=== PATIENT | female | born 1970 | race American Indian/Alaskan Native ===

== ENCOUNTER 2017-01-26 12:41 | Emergency (ER) | payer SELFPAY ==
--- NOTE | 2017-01-26 12:56 | Emergency Department Report ---
Stated Complaint: HIGH BP Time Seen by Provider: 01/26/17 12:51 - HPI History of Present Illness: Patient is a 46 y/o female who presents due to headache and dizziness x 1 week. Patient denies any blurred vision, she admits of having hand tingling and swelling. Patient also admits of having SOB while at rest but denies any chest pain. Patient denies any medical problems. - ROS Review of Systems: + headaches and dizziness. + sob - Exam Physical Exam: alert and oriented x 3, no neurological focal deficits. no weakness, negative fast. no facilat droop, no arm weakness, negative romberg MSE screening note: Focused history and physical exam performed. Due to findings the following was ordered:CBC, CMP, TROPONIN, EKG, CHEST X-RAY, URINALYSIS, CT. ED Disposition for MSE Condition: Stable
[2017-01-26 13:31] LABS: Basophils % (Auto) 0.7 % (0.0-1.8); Eosinophils % (Auto) 1.9 % (0.0-4.3); Hematocrit 43.7 % (30.3-42.9); Hemoglobin 14.4 gm/dl (10.1-14.3); Mean Corpuscular HGB Conc 33 % (30-34); Mean Corpuscular Hemoglobin 30 pg (28-32); Mean Corpuscular Volume 92 fl (79-97); Platelet Count 209 K/mm3 (140-440); Red Blood Count 4.74 M/mm3 (3.65-5.03); White Blood Count 4.9 K/mm3 (4.5-11.0)
[2017-01-26 13:42] LABS: Alanine Aminotransferase 22 units/L (7-56); Albumin 4.1 g/dL (3.9-5); Albumin/Globulin Ratio 1.1 %; Alkaline Phosphatase 72 units/L (35-129); Anion Gap 20 mmol/L; BUN/Creatinine Ratio 19; Blood Urea Nitrogen 13 mg/dL (7-17); Carbon Dioxide 24 mmol/L (22-30); Chloride 103.8 mmol/L (98-107); Glucose 85 mg/dL (65-100); Potassium 4.6 mmol/L (3.6-5.0); Sodium 143 mmol/L (137-145); Total Protein 7.7 g/dL (6.3-8.2)
--- NOTE | 2017-01-26 13:46 | Cat Scan Report ---
CT HEAD WITHOUT CONTRAST INDICATION: Headache. COMPARISON: None similar at this institution. FINDINGS: Noncontrast head CT demonstrates normal, symmetric ventricles and sulci without acute or recent infarct, hemorrhage, mass effect or midline shift. Benign bilateral basal ganglia calcifications. No abnormal extra-axial fluid collections. Posterior fossa structures and basilar cisterns appear within normal limits. Symmetric eye globes. Mild right mid ethmoid air cell opacification. Aplastic right frontal sinus. Clear remainder aerated paranasal sinuses and mastoid air cells. Intact calvarium. Normal overlying scalp soft tissues. Oral piercing and missing teeth incidentally noted. CONCLUSION: No acute intracranial CT abnormality, as described. Thank you for the opportunity to participate in this patient's care.
[2017-01-26 14:54] VITALS: BP 155/90
--- NOTE | 2017-01-26 15:11 | Emergency Department Report ---
ED General Adult HPI - General Chief complaint: High BP Stated complaint: HIGH BP Source: patient Mode of arrival: Ambulatory Limitations: No Limitations - History of Present Illness Initial comments: Patient complains of a mild headache which is bilateral in the occipital area. It was intermittent. She mentioned shortness of breath at triage but denied this to me. She has some vague dizziness earlier but now is asymptomatic. She states that she has been able to walk, she has had no headache no dizziness no weakness or numbness. She is essentially asymptomatic at this time. She had fairly extensive medical screening prior to my encounter. These tests were negative. -: days(s) Location: head Radiation: non-radiation Severity scale (0 -10): 0 Quality: aching Consistency: intermittent, now resolved Improves with: none Worsens with: none Associated Symptoms: denies other symptoms (except as above indicated) - Related Data Previous Rx's Medication Instructions Recorded Last Taken Type Amlodipine Besylate [Norvasc] 2.5 mg PO QDAY #30 tablet 01/26/17 Unknown Rx Allergies Allergy/AdvReac Type Severity Reaction Status Date / Time erythromycin base AdvReac Vomiting Verified 01/26/17 12:54 ED Review of Systems ROS: Stated complaint: HIGH BP Other details as noted in HPI Constitutional: denies: chills, fever Eyes: denies: eye pain, eye discharge, vision change ENT: denies: ear pain, throat pain Respiratory: denies: cough, shortness of breath, wheezing Cardiovascular: denies: chest pain, palpitations Endocrine: no symptoms reported Gastrointestinal: denies: abdominal pain, nausea, diarrhea Genitourinary: denies: urgency, dysuria, discharge Musculoskeletal: denies: back pain, joint swelling, arthralgia Skin: denies: rash, lesions Neurological: headache. denies: weakness, paresthesias Psychiatric: denies: anxiety, depression Hematological/Lymphatic: denies: easy bleeding, easy bruising ED Past Medical Hx - Past Medical History Previous Medical History?: No - Surgical History Past Surgical History?: Yes Hx Cholecystectomy: Yes Additional Surgical History: - Social History Smoking Status: Never Smoker Substance Use Type: Alcohol - Medications Home Medications: Home Medications Medication Instructions Recorded Confirmed Last Taken Type Amlodipine Besylate [Norvasc] 2.5 mg PO QDAY #30 tablet 01/26/17 Unknown Rx ED Physical Exam - General Limitations: No Limitations General appearance: alert, in no apparent distress - Head Head exam: Present: atraumatic, normocephalic - Eye Eye exam: Present: normal appearance, PERRL, EOMI. Absent: scleral icterus - ENT ENT exam: Present: normal exam, mucous membranes moist - Neck Neck exam: Present: normal inspection. Absent: tenderness, meningismus - Respiratory Respiratory exam: Present: normal lung sounds bilaterally. Absent: respiratory distress - Cardiovascular Cardiovascular Exam: Present: regular rate, normal rhythm. Absent: systolic murmur, diastolic murmur, rubs, gallop - GI/Abdominal GI/Abdominal exam: Present: soft, normal bowel sounds. Absent: distended, tenderness, guarding, rebound, rigid - Extremities Exam Extremities exam: Present: normal inspection - Back Exam Back exam: Present: normal inspection - Neurological Exam Neurological exam: Present: alert, oriented X3, CN II-XII intact. Absent: motor sensory deficit - Psychiatric Psychiatric exam: Present: normal affect, normal mood - Skin Skin exam: Present: warm, dry, intact, normal color. Absent: rash ED Course Vital Signs 01/26/17 01/26/17 12:51 14:53 Temperature 98.5 F 98.6 F Pulse Rate 76 66 Respiratory 16 18 Rate Blood Pressure 164/91 Blood Pressure 155/90 [Left] O2 Sat by Pulse 98 100 Oximetry - Reevaluation(s) Reevaluation #1: Patient states her repeat blood pressure was taken 155/90. She essentially asymptomatic at this time. 01/26/17 15:07 ED Medical Decision Making - Lab Data Result diagrams: 01/26/17 12:59 01/26/17 12:59 Laboratory Results - last 24 hr 01/26/17 01/26/17 12:59 12:59 WBC 4.9 RBC 4.74 Hgb 14.4 H Hct 43.7 H MCV 92 MCH 30 MCHC 33 RDW 14.0 Plt Count 209 Lymph % (Auto) 32.3 [place] % (Auto) 7.9 H Eos % (Auto) 1.9 Baso % (Auto) 0.7 Lymph # 1.6 [place] # 0.4 Eos # 0.1 Baso # 0.0 Seg Neutrophils % 57.2 Seg Neutrophils # 2.8 Sodium 143 Potassium 4.6 Chloride 103.8 Carbon Dioxide 24 Anion Gap 20 BUN 13 Creatinine 0.7 Estimated GFR > 60 BUN/Creatinine Ratio 19 Glucose 85 Calcium 9.0 Total Bilirubin 0.40 AST 22 ALT 22 Alkaline Phosphatase 72 Total Protein 7.7 Albumin 4.1 Albumin/Globulin Ratio 1.1 - EKG Data -: EKG Interpreted by Me EKG shows normal: sinus rhythm, axis, intervals, QRS complexes, ST-T waves Rate: normal - EKG Data Interpretation: other (prominent terminal S wave in V2 V3 consider LVH) - Radiology Data Radiology results: report reviewed CT the head showed no acute process Critical care attestation.: If time is entered above; I have spent that time in minutes in the direct care of this critically ill patient, excluding procedure time. ED Disposition Clinical Impression: Essential hypertension, Cephalalgia Disposition: DC- TO HOME OR SELFCARE Is pt being admited?: No Does the pt Need Aspirin: No Condition: Stable Instructions: Hypertension (ED), Acute Headache (ED) Additional Instructions: Return any acute change or problem. Our nurses directed. Follow-up with her primary care provider. Prescriptions: Amlodipine Besylate [Norvasc] 2.5 mg PO QDAY #30 tablet Referrals: PRIMARY CARE, [Primary Care Provider] - 2-3 Days Time of Disposition: 15:09
== END 2017-01-26 15:30 | disposition home or self-care (01) ==
LOC: ED 12:41
DX: I10 Essential (primary) hypertension (principal); Z88.1 Allergy status to other antibiotic agents
CPT/HCPCS: 36415; 70450; 80053; 85025; 99284